=== PATIENT | male | born 1990 | race Caucasian/White ===

== ENCOUNTER → 2023-12-27 10:52 | Outpatient (BNVA) | payer OTHER, SELFPAY | PROVIDERS: Family Provider Electrodiagnostic Medicine; PCP Electrodiagnostic Medicine; Visit Provider Family Medicine | DX: Z00.00 Encounter for general adult medical examination without abnormal findings (principal); R73.09 Other abnormal glucose; R10.13 Epigastric pain; Z51.81 Encounter for therapeutic drug level monitoring; Z13.220 Encounter for screening for lipoid disorders | CPT/HCPCS: 80053; 80061; 83036; 83690; 83721; 85025 ==

== ENCOUNTER 2025-02-22 15:50 | Outpatient (CLI) | payer OTHER, SELFPAY ==
--- NOTE | 2025-02-22 15:45 | USCV_ITS ---
Monty Stapleton Age: 34 Gender: M : 1990 Exam Date: 02/22/2025 16:07 Ordering Phys: Remberto Iniguez MD Technologist: [employer] Exam Location: [facility] [place] Indication: hx of DVT HISTORY: History of deep venous thrombosis. PROCEDURES: Venous duplex imaging was performed in only the left lower extremity. FINDINGS: tds. unable to visualize vessels well Pt on Eliquis CONCLUSIONS Technically difficult exam Chronic changes of DVT LLE. Some residual partiall occlusive thrombus distal Femoral vein. No evidence of acute thrombus Rudy Ny MD (Electronically Signed) Final Date: 22 February 2025 16:42 S
== END 2025-02-22 15:51 | disposition home or self-care (01) ==
LOC: RAD 15:53
PROVIDERS: PCP Family Medicine; Visit Provider Family Medicine
DX: I82.512 Chronic embolism and thrombosis of left femoral vein (principal)
CPT/HCPCS: 93971

== ENCOUNTER → 2025-03-09 11:39 | Outpatient (BNVA) | payer OTHER, SELFPAY | PROVIDERS: PCP Family Medicine | DX: Z51.81 Encounter for therapeutic drug level monitoring (principal); Z13.6 Encounter for screening for cardiovascular disorders | CPT/HCPCS: 80053; 80061; 85025 ==

== ENCOUNTER 2025-06-08 11:09 | Outpatient (CLI) | payer OTHER, SELFPAY ==
--- NOTE | 2025-06-08 11:20 | XR_ITS ---
WS: [id number] XR knee LT 3V* [id number] REASON FOR EXAM: Left knee pain/swelling FINDINGS: No fracture or focal bone lesion. The medial and lateral knee joint space are intact and well preserved. Patellofemoral joint space is intact with minimal subchondral sclerosis and osteophytosis of the patella. XR/XR knee LT 3V* [id number] IMPRESSION: Minimal osteoarthritis of the left knee as above.
== END 2025-06-08 11:10 | disposition home or self-care (01) ==
LOC: RAD 11:11
PROVIDERS: PCP Family Medicine; Visit Provider Family Medicine
DX: M25.562 Pain in left knee (principal)
CPT/HCPCS: 73562

== ENCOUNTER 2025-06-15 07:44 | Outpatient (CLI) | payer OTHER, SELFPAY ==
--- NOTE | 2025-06-15 07:47 | USCV_ITS ---
DayaCamilo almeidat Age: 34 Gender: M : 1990 Exam Date: 06/15/2025 07:58 Ordering Phys: Remberto Iniguez MD Technologist: ANGELA [place] [facility] [place]: Chronic DVT HISTORY: Hx of chronic DVT-left leg PROCEDURES: Venous duplex imaging was performed in only the left lower extremity. The following venous structures were evaluated: common femoral vein, profunda vein, proximal portion of the greater saphenous vein, superficial femoral vein, and the popliteal vein. In addition, the posterior tibial and peroneal trunk were evaluated. FINDINGS: There appears to be residual chronic DVT in the mid and distal FV CONCLUSIONS Residual non occlusive DVT in the mid and distal femoral vein No New thrombus since 02/17 Remainder LLE patent Rudy Ny MD (Electronically Signed) Final Date: 15 June 2025 09:35 S
== END 2025-06-15 07:45 | disposition home or self-care (01) ==
LOC: RAD 07:44
PROVIDERS: PCP Family Medicine; Visit Provider Family Medicine
DX: I82.512 Chronic embolism and thrombosis of left femoral vein (principal)
CPT/HCPCS: 93971

== ENCOUNTER 2025-06-21 10:01 | Outpatient (CLI) | payer OTHER, SELFPAY ==
--- NOTE | 2025-06-21 10:15 | MR_ITS ---
WS: [id number] MRI LEFT KNEE NONCONTRAST TECHNIQUE: Axial PD, coronal PD fat sat, coronal PD, sagittal PD, and sagittal PD fat-sat images obtained. CLINICAL INFORMATION: Left knee pain, positive anterior drawer sign COMPARISON: None. FINDINGS: Serpiginous areas of abnormal marrow signal in the distal femoral shaft and proximal tibial shaft suspicious for bony infarcts. Recommend correlation with clinical history. Additional suspected small bony infarct in the inferior pole of the patella. Subchondral edema involving the medial tibial plateau. Distal quadriceps and patella tendons are intact. Small suprapatellar effusion. Grade 2 chondromalacia patella. Normal medial and patellar retinaculum. Normal ACL and PCL. Medial and lateral meniscus appear intact. Medial and lateral collateral ligaments appear intact. Normal popliteal fossa. MR/MR knee LT wo con* [id number] IMPRESSION: 1. ACL and PCL appear intact. 2. 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 Recommend correlation with clinical history. 3. No acute appearing meniscal tears. 4. Grade IV chondromalacia patella with a small amount of subchondral edema. Outbridge grading: grade II: blister-like swelling/fraying of articular cartila ge extending to surface
== END 2025-06-21 10:02 | disposition home or self-care (01) ==
LOC: RAD 10:01
PROVIDERS: PCP Family Medicine; Visit Provider Family Medicine
DX: M25.562 Pain in left knee (principal)
CPT/HCPCS: 73721

== ENCOUNTER → 2025-07-21 10:21 | Outpatient (BNVA) | payer OTHER, SELFPAY | PROVIDERS: PCP Family Medicine; Visit Provider Student in an Organized Health Care Education/Training Program | DX: M87.052 Idiopathic aseptic necrosis of left femur (principal); M62.838 Other muscle spasm | CPT/HCPCS: 73560; 73565 ==

== ENCOUNTER 2025-08-10 13:55 | Outpatient (CLI) | payer OTHER, SELFPAY | END 2025-08-10 13:56 | disposition home or self-care (01) | LOC: SPT 13:55 | PROVIDERS: PCP Family Medicine; Visit Provider Student in an Organized Health Care Education/Training Program | DX: Z46.89 Encounter for fitting and adjustment of other specified devices (principal); M23.52 Chronic instability of knee, left knee | CPT/HCPCS: L1852 ==